=== PATIENT | female | born 1985 | race Caucasian/White ===

== ENCOUNTER 2023-04-07 14:47 | Outpatient (RCR) | payer OTHER, SELFPAY | END 2023-04-07 23:59 | disposition home or self-care (01) | LOC: RPT 14:47 | PROVIDERS: ATTENDING PHYSICIAN Obstetrics & Gynecology; FAMILY PHYSICIAN Family Medicine | DX: Z39.2 Encounter for routine postpartum follow-up (principal); Z73.6 Limitation of activities due to disability | CPT/HCPCS: 97110 ==